=== PATIENT | female | born 1990 | race Caucasian/White ===

== ENCOUNTER 2019-12-10 20:05 | Emergency (ER) | payer SELFPAY ==
[2019-12-10] MEDS ORDERED: PROMETHAZINE HCL 25 MG TABLET PO ONE ×2 (21:10→23:59)
--- NOTE | 2019-12-10 21:11 | ER Document Report ---
ED Medical Screen (RME) - General Chief Complaint: Abdominal Pain Stated Complaint: ABDOMINAL PAIN Time Seen by Provider: 12/10/19 21:08 Information source: Patient Notes: Patient presents complaining of her right lower side abdominal tenderness that started 3:00 this morning. Patient reports nausea but denies any vomiting or diarrhea. Patient denies any fever or urinary symptoms. Patient is currently 7 weeks G1, P0. Patient denies any vaginal bleeding or discharge. I have greeted and performed a rapid initial assessment of this patient. A comprehensive ED assessment and evaluation of the patient, analysis of test results and completion of the medical decision making process will be conducted by additional ED providers. - Related Data Allergies/Adverse Reactions: sulfamethoxazole [From Bactrim] Allergy (Verified 12/10/19 21:07) trimethoprim [From Bactrim] Allergy (Verified 12/10/19 21:07) Physical Exam - Vital signs Vitals: Temp Pulse Resp BP Pulse Ox 98.0 F 89 17 128/83 H 100 12/10/19 20:15 12/10/19 20:15 12/10/19 20:15 12/10/19 20:15 12/10/19 20:15 - Abdominal Tenderness: Tender - Right lower quadrant Course - Vital Signs Vital signs: Temp Pulse Resp BP Pulse Ox 98.0 F 89 17 128/83 H 100 12/10/19 20:15 12/10/19 20:15 12/10/19 20:15 12/10/19 20:15 12/10/19 20:15
[2019-12-10 22:00] LABS: ABSOLUTE BASOPHILS # (AUTO) 0.1 10^3/uL (0.0-0.2); ABSOLUTE EOSINOPHILS # (AUTO) 0.1 10^3/uL (0.0-0.6); ABSOLUTE LYMPHOCYTES (AUTO) 2.9 10^3/uL (0.5-4.7); ABSOLUTE MONOCYTES (AUTO) 1.2 10^3/uL (0.1-1.4); ABSOLUTE NEUT (AUTO) 9.7 10^3/uL (1.7-8.2); BASOPHILS % (AUTO) 0.6 % (0-2); HEMATOCRIT 39.3 % (36.0-47.0); HEMOGLOBIN 13.9 g/dL (12.0-15.5); LYMPHOCYTES % (AUTO) 20.8 % (13-45); MEAN CORPUSCULAR HGB CONC 35.2 g/dL (32.0-36.0); MEAN CORPUSCULAR VOLUME 85 fl (80-97); MONOCYTES % (AUTO) 8.4 % (3-13); PLATELET COUNT 316 10^3/uL (150-450); RED BLOOD COUNT 4.61 10^6/uL (3.72-5.28); SEGMENTED NEUTROPHILS % (AUTO) 69.2 % (42-78); TOTAL CELLS COUNTED % (AUTO) 100 %
[2019-12-10 22:15] LABS: APPEARANCE,URINE SLIGHTLY-CLOUDY; BILIRUBIN,URINE NEGATIVE (NEGATIVE); COLOR,URINE YELLOW; GLUCOSE, URINE NEGATIVE (NEGATIVE); KETONES,URINE NEGATIVE (NEGATIVE); LEUKOCYTE ESTERASE,URINE MODERATE (NEGATIVE); NITRITE,URINE NEGATIVE (NEGATIVE); PROTEIN,URINE NEGATIVE (NEGATIVE); URINE SPECIFIC GRAVITY 1.023; UROBILINOGEN,URINE NEGATIVE mg/dL (<2.0)
[2019-12-10 22:20] LABS: ANION GAP 12 (5-19); BLOOD UREA NITROGEN 11 mg/dL (7-20); CALCIUM 9.4 mg/dL (8.4-10.2); CARBON DIOXIDE 23 mmol/L (22-30); CHLORIDE 101 mmol/L (98-107); GLUCOSE 97 mg/dL (75-110); POTASSIUM 3.8 mmol/L (3.6-5.0)
[2019-12-10 23:34] LABS: CHLAM PCR NOT DETECTED (NOT DETECT)
--- NOTE | 2019-12-11 00:34 | RADIOLOGY REPORT (SQ) ---
EXAM DESCRIPTION: US TRANSVAGINAL COMPLETED DATE/TME: 12/10/2019 21:10 CLINICAL HISTORY: 29 years, Female, RLQ pain COMPARISON: None. TECHNIQUE: Emergent first trimester ultrasound LIMITATIONS: None. FINDINGS: The uterus measures 10.0 x 5.1 x 6.1 cm. There is an intrauterine gestational sac with yolk sac and pole. Heart tones were obtained at 120 bpm. There is a 1.9 x 1.7 cm hypoechoic area near the gestational sac which could reflect small subchorionic hemorrhage. Ultrasound age 6 weeks 5 days. Nabothian cysts are present in the cervix. The right ovary measures 3.3 x 2.8 x 3.1 cm, the left 3.7 x 2.3 x 2.1 cm. Arterial and venous flow to each ovary. There is no free fluid. There is a 2.4 x 2.2 x 2.5 cm echogenic lesion of the right ovary which likely reflecting dermoid cyst. This is isoechoic to adjacent fat. This could be further assessed on a nonemergent basis.. IMPRESSION: Single, live intrauterine gestation. Probable small subchorionic hemorrhage. Ultrasound age is 6 weeks 5 days. Echogenic mass of the right adnexa/right ovary likely reflecting dermoid cyst. Recommend follow-up as per below. Recommendations for f/u of ovarian complex cysts (1): Endometrioma: <= 7 cm: US f/u 6-12 wks. If not surgically resected, US f/u annually. >7 cm: Consider MR w/IVC or surgical evaluation. If not surgically resected, US f/u annually. Dermoid: <= 5 cm: MR w/IV contrast. If not surgically resected, US f/u annually. >5 cm: Surgical evaluation. If not surgically resected, MR w/IVC; then US f/u annually Indeterminate cyst - multiple thin <=3 mm septations: Any size in any age: Consider surgical evaluation. Indeterminate cyst - non-hyperechoic nodule w/o blood flow: Any size in any age: Consider MR w/IVC or surgical evaluation. Indeterminate cyst - other, not classic for but suggestive of hemorrhagic cyst, endometrioma or dermoid: Pre-menopause: <= 7 cm: US f/u 6-12 weeks. If unchanged, continue f/u with US or consider MR w/IVC. If these do not confirm endometrioma or dermoid, consider surgical evaluation. >7 cm: Consider MR w/IVC or surgical evaluation. Post-menopause (>=1 year from last menstrual period): Any size: Consider surgical evaluation. Cyst worrisome for malignancy (thick, irregular >=3 mm septations or nodule with blood flow): Any size in any age: Consider surgical evaluation. (1) Recommendations based upon the 2010 SRU Consensus Conference Statement on the Management of Asymptomatic Ovarian and Other Adnexal Cysts Imaged at US: Radiology. 2009;256(3):943-54 copyright 2011 [employer]- All Rights Reserved
--- NOTE | 2019-12-11 02:57 | PDOC CONSULTATION ---
Consultation Consult Date: 12/11/19 Provider Consulted: ALEX CHINCHILLA Consult reason:: Abdominal pains History of Present Illness Patient complains of: Abdominal pains History of Present Illness: LISE AWAD is a 29 year old female who woke up at 3AM yesterday with right lower quadrant pains. She came to the ED and ultrasound of the pelvis was done and noted to have uterine of about 7 weeks. She has dermoid cyst on the right side 2 x 2 x 2cm. She denies any fever chills nausea vomiting diarrhea nor constipation. She feels her pains are improving but more noticeable when she moves from side to side while in bed. In the past couple of days she feels that she is not able to completely empty her urinary bladder. Her urinalysis showed moderate leukocyte esterase but other parameters are normal for UTI. Social History Smoking Status: Never Smoker Family History Parental Family History Reviewed: Yes Children Family History Reviewed: No Sibling(s) Family History Reviewed.: No Medication/Allergy Allergies/Adverse Reactions: sulfamethoxazole [From Bactrim] Allergy (Verified 12/10/19 21:07) trimethoprim [From Bactrim] Allergy (Verified 12/10/19 21:07) Review of Systems Constitutional: PRESENT: as per HPI Gastrointestinal: PRESENT: as per HPI Physical Exam Vital Signs: Temp Pulse Resp BP Pulse Ox 98.3 F 66 16 109/67 98 12/11/19 00:25 12/11/19 00:25 12/11/19 00:25 12/11/19 00:25 12/11/19 00:25 Intake & Output 12/09/19 12/10/19 12/11/19 06:59 06:59 06:59 Weight 79.2 kg General appearance: PRESENT: mild distress - Not asking for pain medication Head exam: PRESENT: atraumatic Eye exam: PRESENT: conjunctiva pink Mouth exam: PRESENT: moist Neck exam: PRESENT: full ROM Respiratory exam: PRESENT: clear to auscultation mala Cardiovascular exam: PRESENT: RRR Pulses: PRESENT: normal radial pulses GI/Abdominal exam: PRESENT: soft, tenderness - Mild tenderness on the right lower quadrant and suprapubic areas Rectal exam: PRESENT: deferred Neurological exam: PRESENT: alert, oriented to person, oriented to place, oriented to time, oriented to situation Results Laboratory Results: 12/10/19 21:41 12/10/19 21:41 12/10/19 12/10/19 12/10/19 21:41 21:41 21:41 WBC 14.0 H RBC 4.61 Hgb 13.9 Hct 39.3 MCV 85 MCH 30.0 MCHC 35.2 RDW 13.0 Plt Count 316 Seg Neutrophils % 69.2 Sodium 136.0 L Potassium 3.8 Chloride 101 Carbon Dioxide 23 Anion Gap 12 BUN 11 Creatinine 0.59 Est GFR ( Amer) > 60 Glucose 97 Calcium 9.4 Urine Color YELLOW Urine Appearance SLIGHTLY-CLOUDY Urine pH 6.0 Ur Specific Lyman 1.023 Urine Protein NEGATIVE Urine Glucose (UA) NEGATIVE Urine Ketones NEGATIVE Urine Blood NEGATIVE Urine Nitrite NEGATIVE Ur Leukocyte Esterase MODERATE H Urine WBC (Auto) 6 Urine RBC (Auto) 6 Impressions: Obstetrics Ultrasound 12/10/19 21:10 IMPRESSION: Single, live intrauterine gestation. Probable small subchorionic hemorrhage. Ultrasound age is 6 weeks 5 days. Echogenic mass of the right adnexa/right ovary likely reflecting dermoid cyst. Recommend follow-up as per below. Recommendations for f/u of ovarian complex cysts (1): Endometrioma: <= 7 cm: US f/u 6-12 wks. If not surgically resected, US f/u annually. >7 cm: Consider MR w/IVC or surgical evaluation. If not surgically resected, US f/u annually. Dermoid: <= 5 cm: MR w/IV contrast. If not surgically resected, US f/u annually. >5 cm: Surgical evaluation. If not surgically resected, MR w/IVC; then US f/u annually Indeterminate cyst - multiple thin <=3 mm septations: Any size in any age: Consider surgical evaluation. Indeterminate cyst - non-hyperechoic nodule w/o blood flow: Any size in any age: Consider MR w/IVC or surgical evaluation. Indeterminate cyst - other, not classic for but suggestive of hemorrhagic cyst, endometrioma or dermoid: Pre-menopause: <= 7 cm: US f/u 6-12 weeks. If unchanged, continue f/u with US or consider MR w/IVC. If these do not confirm endometrioma or dermoid, consider surgical evaluation. >7 cm: Consider MR w/IVC or surgical evaluation. Post-menopause (>=1 year from last menstrual period): Any size: Consider surgical evaluation. Cyst worrisome for malignancy (thick, irregular >=3 mm septations or nodule with blood flow): Any size in any age: Consider surgical evaluation. (1) Recommendations based upon the 2010 SRU Consensus Conference Statement on the Management of Asymptomatic Ovarian and Other Adnexal Cysts Imaged at US: Radiology. 2009;256(3):776-29 copyright 2011 [employer]- All Rights Reserved Assessment & Plan - Diagnosis (1) Abdominal gas pain Is this a current diagnosis for this admission?: Yes - Time Time Spent: 30 to 50 Minutes - Plan Summary Plan Summary: 29-year-old female 7weeks with almost 24 hours of right lower quadrant pains. Pains actually are getting better. Her white count slightly elevated. Ultrasound showed single uterine about 7weeks with heart tones. Small dermoid on the right lower quadrant area. Urinalysis showed mild leukocyte esterase but no other finding will be more suspicious for UTI though patient claims that the past couple of days she would not empty her bladder completely. Physical exam showed just mild tenderness in the right lower quadrant and suprapubic areas. Impression is unlikely that she has acute appendicitis. Recommendation: I had a long talk with the patient and her and given them the option of being admitted and getting an MRI later in the morning or going home and just be placed on clear liquids and if her pains worsen or develops fever or vomiting for her to come back right away to ED. It is almost 24 hours now since she has the pains and her pains actually are getting better so I do not think she has acute appendicitis. The patient and her decided to go home and and if the pains worsen or develops fever or chills nausea or vomiting then for her to come back to the emergency room for reevaluation. 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
--- NOTE | 2019-12-11 03:40 | ER Document Report ---
ED General - General Chief Complaint: Abdominal Pain Stated Complaint: ABDOMINAL PAIN Time Seen by Provider: 12/10/19 21:08 Notes: 29-year-old female presents the emergency department complaining of right lower quadrant pain that onset around 3 AM yesterday morning. States it is intermittent and sharp and stabbing, worsens with movement and rolling from side to side. She states that the pain worsens when she tries to urinate or have a bowel movement with that pressure but that she does not actually have any dysuria or frequency. Patient is a G1, P0, 7 weeks . Denies any vaginal bleeding or vaginal discharge. Has not seen anybody yet for this . TRAVEL OUTSIDE OF THE [place] IN LAST 30 DAYS: No - Related Data Allergies/Adverse Reactions: sulfamethoxazole [From Bactrim] Allergy (Verified 12/10/19 21:07) trimethoprim [From Bactrim] Allergy (Verified 12/10/19 21:07) Past Medical History - General Information source: Patient - Social History Smoking Status: Never Smoker Frequency of alcohol use: None Drug Abuse: None Family History: Reviewed & Not Pertinent Patient has suicidal ideation: No Patient has homicidal ideation: No Review of Systems - Review of Systems Constitutional: No symptoms reported Gastrointestinal: See HPI Genitourinary: See HPI Female Genitourinary: See HPI -: Yes All other systems reviewed and negative Physical Exam - Vital signs Vitals: Temp Pulse Resp BP Pulse Ox 98.0 F 89 17 128/83 H 100 12/10/19 20:15 12/10/19 20:15 12/10/19 20:15 12/10/19 20:15 12/10/19 20:15 Interpretation: Normal - Notes Notes: GENERAL: Alert, interacts well. No acute distress. HEAD: Normocephalic, atraumatic EYES: Pupils equal, round and reactive to light, extraocular movements intact. ENT: Oral mucosa moist, tongue midline. NECK: Full range of motion, supple, trachea midline. LUNGS: Clear to auscultation bilaterally, no wheezes, rales or rhonchi, no respiratory distress. HEART: Regular rate and rhythm, no murmurs, gallops, rubs. ABDOMEN: Soft, right lower and right mid abdominal tenderness to palpation, no guarding, no rigidity, no rebounding, nondistended, bowel sounds present in all 4 quadrants. PELVIC: Right adnexal tenderness to palpation, negative chandelier sign, no cervical tenderness to palpation, no cervical discharge. EXTREMITIES: Moves all 4 extremities spontaneously, no edema, radial and dorsalis pedis pulses 2/4 bilaterally. No cyanosis. NEUROLOGICAL: Alert and oriented x3, normal speech. PSYCH: Normal mood, normal affect. SKIN: Warm, Dry, normal turgor, no rashes or lesions noted. Course - Re-evaluation Re-evalutation: 12/11/19 03:42 CBC shows leukocytosis, BMP grossly unremarkable, quantitative hCG is 43,576, urinalysis I suspect is contaminated as the leukocyte esterase is moderate but there are 12 squamous epithelial cells. This was sent for culture. I will lean towards treating this because she does complain of pain when bearing down to urinate, it will be treated with Macrobid so as to not cloud the picture. Gonorrhea and Chlamydia are negative. Ultrasound shows single intrauterine of 6 weeks 5 days gestation with a heart rate of 120 bpm. There is a dermoid cyst. I did discuss the case with Dr. Zunilda Oglesby who is the [facility] on-call, she states that a dermoid cyst should not cause pain and should not cause a leukocytosis. Agrees with plan to consult with surgery, agrees that MRI would be the better study for looking for appendicitis in somebody at this stage of . Also discussed the case with Dr. Rehman, still examined the patient, feels that at this time the patient is not concerning for appendicitis, gave the patient the option to stay and be observed and have an MRI in the morning or to go home and watch for the next 24 hours to see if her pain worsens or improves. Patient chooses to be discharged home. I will treat possible urinary tract infection versus dirty urine that was contaminated with Macrobid so as to not possibly partially treat appendicitis. Patient will be discharged home and return for worsening pain or any new or concerning symptoms. - Vital Signs Vital signs: Temp Pulse Resp BP Pulse Ox 98.3 F 66 16 109/67 98 12/11/19 00:25 12/11/19 00:25 12/11/19 00:25 12/11/19 00:25 12/11/19 00:25 - Laboratory Result Diagrams: 12/10/19 21:41 12/10/19 21:41 Laboratory results interpreted by me: 12/10/19 12/10/19 12/10/19 21:41 21:41 21:41 WBC 14.0 H Absolute Neuts (auto) 9.7 H Sodium 136.0 L Beta HCG, Quant 41463.00 H Ur Leukocyte Esterase MODERATE H Discharge - Discharge Clinical Impression: RLQ abdominal pain, First trimester , Dermoid cyst of right ovary Condition: Stable Disposition: HOME, SELF-CARE Additional Instructions: Today we are not exactly sure what is causing your pain. It is possible that it is appendicitis, it is also possible that this is coming from a very mild urinary tract infection. If your pain worsens, if you develop a fever or if you develop any new or concerning symptoms I want you to return to the emergency department immediately. We will consider doing an MRI at that point to look for appendicitis. This is safe in . I am also treating you with Macrobid. This is an antibiotic that will only treat urinary tract infections and will not treat appendicitis. If your symptoms improve with the Macrobid that means this is unlikely to be appendicitis. For the dermoid cyst you will need to follow-up with [facility] as an outpatient. This is something that they can discuss with you while treating your . Prescriptions: Nitrofurantoin/Nitrofuran Mac [Macrobid 100 mg Capsule] 1 tab PO BID #10 capsule Referrals: ZUNILDA OGLESBY MD [ACTIVE STAFF] - Follow up in 3-5 days
[2019-12-11 04:11] VITALS: BP 104/62
== END 2019-12-11 04:15 | disposition home or self-care (01) ==
LOC: ER 20:05
DX: O26.891 Other specified pregnancy related conditions, first trimester (principal); R10.31 Right lower quadrant pain; O99.89 Other specified diseases and conditions complicating pregnancy, childbirth and the puerperium; D27.0 Benign neoplasm of right ovary; O99.111 Other diseases of the blood and blood-forming organs and certain disorders involving the immune mechanism complicating pregnancy, first trimester; D72.829 Elevated white blood cell count, unspecified; Z3A.01 Less than 8 weeks gestation of pregnancy; Z88.1 Allergy status to other antibiotic agents
CPT/HCPCS: 36415; 76817; 80048; 81001; 84702; 85025; 87086; 87491; 87591; 99284

== ENCOUNTER 2020-07-18 21:07 | Inpatient (IN) | payer OTHER ==
[~2020-07-18 21:07] MED LIST: ZOLPIDEM TARTRATE 5 MG TABLET PO ONE
[2020-07-18] MEDS ORDERED: RINGERS SOLUTION,LACTATED 1,000 ML IV ONE (21:16)
[2020-07-18] MEDS ORDERED: DINOPROSTONE 10 MG VAGINAL INSERT.SR PV PRN (21:17)
[2020-07-18 21:53] LABS: HEMATOCRIT 39.1 % (36.0-47.0); HEMOGLOBIN 13.3 g/dL (12.0-15.5); MEAN CORPUSCULAR HGB CONC 33.9 g/dL (32.0-36.0); MEAN CORPUSCULAR VOLUME 91 fl (80-97); PLATELET COUNT 255 10^3/uL (150-450); RED BLOOD COUNT 4.28 10^6/uL (3.72-5.28); WHITE BLOOD COUNT 11.5 10^3/uL (4.0-10.5)
[2020-07-18 21:54] LABS: APPEARANCE,URINE CLEAR; BILIRUBIN,URINE NEGATIVE (NEGATIVE); COLOR,URINE STRAW; GLUCOSE, URINE NEGATIVE (NEGATIVE); KETONES,URINE NEGATIVE (NEGATIVE); LEUKOCYTE ESTERASE,URINE NEGATIVE (NEGATIVE); NITRITE,URINE NEGATIVE (NEGATIVE); PROTEIN,URINE NEGATIVE (NEGATIVE); URINE SPECIFIC GRAVITY 1.003; UROBILINOGEN,URINE NEGATIVE mg/dL (<2.0)
[2020-07-18 22:08] LABS: ABSOLUTE LYMPHOCYTES# (MANUAL) 3.2 10^3/uL (0.5-4.7); ABSOLUTE MONOCYTES # (MANUAL) 0.9 10^3/uL (0.1-1.4); BASOPHILS % (MANUAL) 0 % (0-2); EOSINOPHILS % (MANUAL) 1 % (0-6); LYMPHOCYTES % (MANUAL) 28 % (13-45); MONOCYTES % (MANUAL) 8 % (3-13); SEGMENTED NEUTROPHILS % (MAN) 63 % (42-78); TOTAL CELLS COUNTED 100
[2020-07-18 22:09] LABS: ANISOCYTOSIS SLIGHT
[2020-07-18 22:10] LABS: PLATELET COMMENT ADEQUATE
[2020-07-18 22:11] LABS: URINE AMPHETAMINES SCREEN NEGATIVE; URINE BARBITURATES SCREEN NEGATIVE; URINE BENZODIAZEPINES SCREEN NEGATIVE; URINE COCAINE SCREEN NEGATIVE; URINE MARIJUANA (THC) SCREEN NEGATIVE; URINE METHADONE SCREEN NEGATIVE; URINE PHENCYCLIDINE SCREEN NEGATIVE
[2020-07-18] MEDS: RINGERS SOLUTION,LACTATED 1,000 ML IV PRN (22:30)
[2020-07-18] MEDS ORDERED: OXYTOCIN 10 UNIT/ML VIAL ONE (22:51)
[2020-07-18] MEDS ORDERED: MISOPROSTOL 0.2 MG TABLET ONE (22:51)
[2020-07-18] MEDS ORDERED: OXYTOCIN/0.9 % SODIUM CHLORIDE 30 UNIT/500 ML RTUINJ ONE (22:52)
[2020-07-18] MEDS ORDERED: LIDOCAINE 1% INJ-PF (10 MG/ML) 30 ML SDV ONE (22:52)
[2020-07-18] MEDS ORDERED: DINOPROSTONE 10 MG VAGINAL INSERT.SR ONE (22:52)
[2020-07-18] MEDS ORDERED: ACETAMINOPHEN 325 MG TABLET PO ONE (23:08)
--- NOTE | 2020-07-18 23:08 | Admission Physical ---
Datetime Report Generated by CPN: 07/18/2020 23:08 CURRENT ADMISSION Chief Complaint: Other Indication for Induction: Gestational HTN; Eclampsia-Mild Admit Impression : Term, Intrauterine Admit Plan: Admit to Unit; Initiate Labor Protocol ALLERGIES Medication Allergies: Yes Medication Allergies: sulfamethoxazole (07/17/2020); trimethoprim (07/17/2020) Latex: No Latex Allergies OBSTETRICAL HISTORY EDC: 07/30/2020 00:00 : 1 Para: 0 Term: 0 : 0 SAB: 0 IAB: 0 Ectopic: 0 Livin Cesareans: 0 VBACs: 0 Multiple Births: 0 PIH: Yes Current Procedures: Ultrasound Obstetrical History Comments: G1- Current pre-eclampsia PHYSICAL EXAM General: Normal HEENT: Normal Neurologic: Normal Thyroid: Normal Heart: Normal Lungs: Normal Breast: Deferred Back: Normal Abdomen: Normal Genitourinary Exam: Normal Extremities: Normal DTRs: Normal Pelvic Type: Adequate FETUS A EGA: 38.2 INFORMED CONSENT Signature: with User ID: [email or web address]
[2020-07-18] MEDS ORDERED: ACETAMINOPHEN 325 MG TABLET ONE (23:09)
[2020-07-19] MEDS ORDERED: ZOLPIDEM TARTRATE 5 MG TABLET ONE (00:15)
[2020-07-19] MEDS: RINGERS SOLUTION,LACTATED 1,000 ML IV PRN (10:33)
[2020-07-19] MEDS ORDERED: NALBUPHINE HCL INJ 10 MG/1 ML AMPULE ONE ×2 (14:21→20:35)
[2020-07-19] MEDS ORDERED: PROMETHAZINE HCL INJ 25 MG/1 ML VIAL ONE ×2 (14:21→20:35)
[2020-07-19] MEDS ORDERED: PROMETHAZINE HCL INJ 25 MG/1 ML VIAL IV ONE ×2 (14:35→20:30)
[2020-07-19] MEDS ORDERED: NALBUPHINE HCL INJ 10 MG/1 ML AMPULE IV ONE (14:35)
--- NOTE | 2020-07-19 14:36 | L&D Progress Notes ---
PROGRESS NOTES Datetime Report Generated by CPN: 07/19/2020 14:35 PROGRESS NOTE Impression Other: IOL for pre-e stable Procedures: Sterile Vag Exam Plan: Continue Present Management; Induction Informed Consent Obtained: Vaginal Delivery; Induction of Labor Vital Signs : Reviewed; Within Normal Limits Comment: S: pt comfortable after cervidil removal, agreeable to cook's cath, no concerns at this time O: VSS, cervix and contractions as stated, cat I tracing A: IUP @ 38w3d- IOL for pre-e stable with cervical change after cervidil Cook's catheter inserted without difficulty-pt tolerated well P: continue IOL with low dose pit and cooks catheter at this time, epidural prn VAGINAL EXAM Contractions: irregular LAST VAGINAL EXAM-NURSING Nursing Exam Dilitation: 1.0 Nursing Exam Effacement: 50 Nursing Exam Station: -2 Nursing Exam Contractions: irregular MEMBRANES Membranes: Intact FETUS A Monitoring: External US FHR Category: Category I SIGNATURE SIGNATURE: [id number] Assignment: Shaquille aBi MD Signature: with User ID: [email or web address] : with User ID: [email or web address]
--- NOTE | 2020-07-19 16:55 | L&D Progress Notes ---
PROGRESS NOTES Datetime Report Generated by CPN: 07/19/2020 16:55 PROGRESS NOTE Impression Other: IUP @ 24t2q-INn stable Procedures: Sterile Vag Exam Plan: Continue Present Management; Induction Informed Consent Obtained: Vaginal Delivery; Induction of Labor Vital Signs : Within Normal Limits Comment: S: comfortable, took good nap after IV pain medication, no concerns at this time O: VSS ( 1 severe range, laying on bp cuff, repeat mild range), cervix as stated-cook's remains in place, pit @9mu/min, Cat I tracing A: IUP @ 38w3d IOL for [id number] P: continue present management, epidural prn VAGINAL EXAM Contractions: 4 LAST VAGINAL EXAM-NURSING Nursing Exam Dilitation: 3.0 Nursing Exam Effacement: 50 Nursing Exam Station: -2 Nursing Exam Contractions: irregular MEMBRANES Membranes: Intact FETUS A Monitoring: External US FHR Category: Category I SIGNATURE SIGNATURE: [id number] Assignment: Shaquille Bai MD Signature: with User ID: [email or web address] : with User ID: [email or web address]
[2020-07-19] MEDS ORDERED: NALBUPHINE HCL INJ 10 MG/1 ML AMPULE INJ ONE (20:30)
[2020-07-19] MEDS ORDERED: EPHEDRINE SULFATE INJ 50 MG/1 ML AMPULE ONE (23:36)
[2020-07-19] MEDS ORDERED: FENTANYL/BUPIVACAINE/NS/PF 300 MCG/150 ML RTUINJ EPI ONE (23:37)
[2020-07-19] MEDS ORDERED: ROPIVACAINE HCL 0.2% INJ/PF (2 MG/ML) 20 ML SDV ONE (23:37)
[2020-07-20] MEDS ORDERED: ACETAMINOPHEN 325 MG TABLET ONE ×2 (07:39→18:37)
[2020-07-20] MEDS ORDERED: ACETAMINOPHEN 325 MG TABLET PO ONE (08:30)
[2020-07-20] MEDS ORDERED: OXYTOCIN/0.9 % SODIUM CHLORIDE 30 UNIT/500 ML RTUINJ ONE (09:52)
[2020-07-20] MEDS: OXYTOCIN/0.9 % SODIUM CHLORIDE 30 UNIT/500 ML RTUINJ IV PRN (10:00)
[2020-07-20] MEDS ORDERED: FENTANYL/BUPIVACAINE/NS/PF 300 MCG/150 ML RTUINJ EPI ONE (14:03)
[2020-07-20] MEDS ORDERED: AMPICILLIN SOD/SULBACTAM 3 GM VIAL ONE (18:44)
[2020-07-20] MEDS ORDERED: BUPIVACAINE HCL 0.25 % INJ/PF (2.5 MG/1 ML) 30 ML VIAL ONE (21:06)
[2020-07-20] MEDS ORDERED: ROPIVACAINE HCL 0.2% INJ/PF (2 MG/ML) 20 ML SDV ONE ×2 (21:07→23:05)
[2020-07-21] MEDS ORDERED: ACETAMINOPHEN 325 MG TABLET ONE ×2 (00:35→12:16)
[2020-07-21] MEDS ORDERED: AMPICILLIN SOD/SULBACTAM 3 GM VIAL ONE ×2 (00:35→06:55)
[2020-07-21] MEDS ORDERED: AMPICILLIN SOD/SULBACTAM 3 GM VIAL IV SCH ×2 (01:00→12:00)
[2020-07-21] MEDS ORDERED: ACETAMINOPHEN 325 MG TABLET PO ONE ×2 (01:00→12:13)
[2020-07-21] MEDS ORDERED: FENTANYL/BUPIVACAINE/NS/PF 300 MCG/150 ML RTUINJ EPI ONE (03:33)
[2020-07-21] MEDS ORDERED: CITRIC ACID/SODIUM CITRATE ORAL SOLN 15 ML UDCUP ONE (05:59)
[2020-07-21] MEDS ORDERED: CEFAZOLIN 2 GM/D5W RTU 2 GM/50 ML RTUPB IV ONE (05:59)
[2020-07-21] MEDS ORDERED: OXYTOCIN/0.9 % SODIUM CHLORIDE 30 UNIT/500 ML RTUINJ ONE ×2 (07:14→14:14)
[2020-07-21] MEDS: OXYTOCIN/0.9 % SODIUM CHLORIDE 30 UNIT/500 ML RTUINJ IV PRN (07:39)
[2020-07-21] MEDS ORDERED: BUPIVACAINE HCL 0.25 % INJ/PF (2.5 MG/1 ML) 30 ML VIAL ONE (08:33)
--- NOTE | 2020-07-21 08:50 | L&D Progress Notes ---
PROGRESS NOTES Datetime Report Generated by CPN: 07/21/2020 08:49 PROGRESS NOTE Impression Other: IUP @ 19w3i-MNa stable Procedures: Sterile Vag Exam Plan: Continue Present Management; Induction Informed Consent Obtained: Vaginal Delivery; Induction of Labor Vital Signs : Within Normal Limits Comment: VS stable, Cat 1 strip, tired, ready to be delivered, VE by RN, will move patient in different positions and recheck, Dr. Boswell on unit and discussed POC, will monitor closely, C/S if no progress or descent this AM VAGINAL EXAM Contractions: 4 LAST VAGINAL EXAM-NURSING Nursing Exam Dilitation: 9.0 Nursing Exam Effacement: 90 Nursing Exam Station: -1 Nursing Exam Contractions: unable to determine pattern at this time d/t maternal position. MEMBRANES Membranes: Intact FETUS A Monitoring: External US FHR Category: Category I SIGNATURE SIGNATURE: [id number] Assignment: Zunilda Boswell MD Signature: with User ID: [email or web address] : with User ID: [email or web address]
[2020-07-21] MEDS ORDERED: NORMAL SALINE 250 ML IV PRN ×2 (10:03)
[2020-07-21 11:05] LABS: FIBRINOGEN 582 mg/dL (209-497); INTERNATIONAL RATION (INR) 1.07; PARTIAL THROMBOPLASTIN TIME 30.8 SEC (23.5-35.8); PROTHROMBIN TIME 14.1 SEC (11.4-15.4)
[2020-07-21 11:06] LABS: HEMATOCRIT 35.7 % (36.0-47.0); HEMOGLOBIN 12.2 g/dL (12.0-15.5); MEAN CORPUSCULAR HGB CONC 34.3 g/dL (32.0-36.0); MEAN CORPUSCULAR VOLUME 90 fl (80-97); PLATELET COUNT 213 10^3/uL (150-450); RED BLOOD COUNT 3.96 10^6/uL (3.72-5.28); RED CELL DISTRIBUTION WIDTH 14.1 % (11.5-14.0)
[2020-07-21 11:11] LABS: ALBUMIN 2.5 g/dL (3.5-5.0); ALKALINE PHOSPHATASE 143 U/L (38-126); ANION GAP 8 (5-19); ASPARTATE AMINO TRANSFERASE 30 U/L (14-36); BILIRUBIN,DIRECT 0.1 mg/dL (0.0-0.4); BILIRUBIN,TOTAL 1.7 mg/dL (0.2-1.3); BLOOD UREA NITROGEN 10 mg/dL (7-20); CALCIUM 7.6 mg/dL (8.4-10.2); CARBON DIOXIDE 17 mmol/L (22-30); CHLORIDE 106 mmol/L (98-107); GLUCOSE 100 mg/dL (75-110); POTASSIUM 3.6 mmol/L (3.6-5.0)
[2020-07-21] MEDS ORDERED: FENTANYL CITRATE INJ/PF 100 MCG/2 ML AMPUL IV ONE (11:24)
[2020-07-21] MEDS ORDERED: FENTANYL CITRATE INJ/PF 100 MCG/2 ML AMPUL ONE ×2 (11:25→14:14)
[2020-07-21 11:33] LABS: ABSOLUTE MONOCYTES # (MANUAL) 1.2 10^3/uL (0.1-1.4); ANISOCYTOSIS SLIGHT; BAND NEUTROPHILS % (MANUAL) 3 % (3-5); BASOPHILS % (MANUAL) 0 % (0-2); EOSINOPHILS % (MANUAL) 0 % (0-6); LYMPHOCYTES % (MANUAL) 4 % (13-45); MONOCYTES % (MANUAL) 5 % (3-13); OVALOCYTES SLIGHT; PLATELET COMMENT ADEQUATE; SEGMENTED NEUTROPHILS % (MAN) 88 % (42-78); TEAR DROP CELLS SLIGHT; TOTAL CELLS COUNTED 100; TOXIC GRANULATION SLIGHT; TOXIC VACUOLATION PRESENT
[2020-07-21 11:42] LABS: WHITE BLOOD COUNT 24.7 10^3/uL (4.0-10.5)
[2020-07-21] MEDS: AMPICILLIN SODIUM/SULBACTAM NA 3 GM in NORMAL SALINE 100 ML IV SCH ×2 (13:14→19:09)
--- NOTE | 2020-07-21 13:46 | L&D Progress Notes ---
PROGRESS NOTES Datetime Report Generated by CPN: 07/21/2020 13:46 PROGRESS NOTE Impression Other: IUP @ 53t8u-TOf stable Procedures: Sterile Vag Exam Plan: Continue Present Management; Induction Informed Consent Obtained: Vaginal Delivery; Induction of Labor Vital Signs : Within Normal Limits Comment: Dr. Boswell in to check patient, VE 8-9, no cervical change and cervix could not be reduced, POC discussed with pt and and C/S called, Cat 1 strip, Pitocin D/C, vs stable VAGINAL EXAM Contractions: 4 LAST VAGINAL EXAM-NURSING Nursing Exam Dilitation: 9.0 Nursing Exam Effacement: 90 Nursing Exam Station: 1 Nursing Exam Contractions: unable to determine pattern at this time d/t maternal position. MEMBRANES Membranes: Intact FETUS A Monitoring: External US FHR Category: Category I SIGNATURE SIGNATURE: [id number] Assignment: Zunilda Boswell MD Signature: with User ID: [email or web address] : with User ID: [email or web address]
[2020-07-21] MEDS ORDERED: HYDROMORPHONE HCL INJ/PF 2 MG/ML AMPULE IV PRN (13:54)
[2020-07-21] MEDS ORDERED: MEASLES,MUMPS&RUBELLA VACC/PF 0.5 ML VIAL SUBCUT PRN (13:54)
[2020-07-21] MEDS ORDERED: OXYCODONE-ACETAMINOPHEN 5-325 MG TABLET PO PRN (13:54)
[2020-07-21] MEDS ORDERED: OXYTOCIN/0.9 % SODIUM CHLORIDE 30 UNIT/500 ML RTUINJ IV PRN (13:54)
[2020-07-21] MEDS ORDERED: RINGERS SOLUTION,LACTATED 1,000 ML IV PRN (13:54)
[2020-07-21] MEDS ORDERED: PROMETHAZINE HCL INJ 25 MG/1 ML VIAL IV PRN (13:54)
[2020-07-21] MEDS ORDERED: ACETAMINOPHEN 325 MG TABLET PO PRN (13:54)
[2020-07-21] MEDS ORDERED: ACETAMINOPHEN 1,000 MG/100 ML RTUPB IV PRN (13:54)
[2020-07-21] MEDS ORDERED: DIPH/PERTUSS(ACELL)/TETANUS VAC/PF 0.5 ML SYR (>=10YO) IM PRN (13:54)
--- NOTE | 2020-07-21 14:00 | Operative Report ---
Operative Report DATE OF SURGERY: 07/21/20 PREOPERATIVE DIAGNOSIS: Arrest of Dilation, Chorioamnionitis, PreE, 38+5ega, Fa iled IOL POSTOPERATIVE DIAGNOSIS: KING - delivered, macrosomia OPERATION: Primary section SURGEON: KAT OGLESBY ANESTHESIA: Epidural TISSUE REMOVED OR ALTERED: placenta and cord sent to pathology COMPLICATIONS: none ESTIMATED BLOOD LOSS: 600ml QUANTITATIVE BLOOD LOSS: 905 INTRAOPERATIVE FINDINGS: normal bilateral tubes/ovaries, normal uterus, VMI delivered at 1452, apgars 8/9, weight 9#6oz. cytotec 1000mg given [place] for mild uterine atony. PROCEDURE: Anesthesia provider: [Katie Spivey CRNA, Dr. Berry] Urine output: [150ml] IV fluids: [600ml] Indications: [30yo at 38+5ega presented on 07/18 for IOL with cervidil for PreE by 24 hr UTP of greater than 300mg. On 07/19 she progressed with pitocin and cooks catheter. She SROM at 1906 on 07/19 and already had epidural in place. On 07/20 she reportedly continued to progress and reached 7cm last evening. Upon my arrival this am she was reported to be 9cm but having irregular contraction pattern. She was additionally given IVF and additional IV line and D5 since she had not eaten since 07/19. Pitocin increased to 30milliunits with more regular contraction pattern. Now cervix is still only 9cm despite 4hrs of contractions. Per last US on 07/03 bay was 7# with projected weight at this time based on US of 8-9 pounds. Reassuring monitoring throughout this morning. Reviewed with patient arrest of dilation and reviewed and regarding risks of bleeding and infection with known chorioamnionitis and prolonged Rupture of membranes and prolonged labor and induction. The risks, benefits, alternatives were reviewed and she desires to proceed with planned procedure. Will continue unasyn postoperatively.] Procedure: The patient was taken to the operating room where spinal anesthesia was obtained and found to be adequate. She was then prepped and draped in the normal sterile fashion and placed in the dorsal supine position with a leftward tilt. A Pfannenstiel skin incision was then made and carried through to the underlying layers of the fascia with the scalpel. The fascia was incised in the midline and the incision extended laterally with the Ruby scissors. The superior aspect of the fascial incision was then grasped with Gerardo clamps elevated and the underlying rectus muscles dissected off [bluntly]. Attention was then turned to the inferior aspect of the fascial incision which in a similar fashion was grasped, tented up with Gerardo clamps, and the rectus muscles dissected off [bluntly]. The rectus muscles were then in the midline and the peritoneum at the amount identified and entered [bluntly]. The peritoneal incision was then extended superiorly and inferiorly with good visualization of the bladder. The bladder blade was inserted and the vesicouterine peritoneum identified grasped with Lebanese pickups and entered sharply with the Metzenbaum scissors. This incision was then extended laterally with the Metzenbaum scissors and a bladder flap created digitally. The bladder blade was then reinserted and the lower uterine segment incised in a transverse fashion with the scalpel. The uterine incision was then extended bluntly. The bladder blade was removed and the infant's head was delivered from cephalic presentation atraumatically. The nose and mouth were suctioned and the cord doubly clamped and cut. And the infant was handed off to waiting pediatricians. The placenta was then delivered spontaneously and the uterus exteriorized and cleared of all clots and debris. The uterine incision was then repaired with 1- 0 Vicryl in a running locked fashion. A second layer of the same suture was used to obtain hemostasis via imbrication of the initial layer. The bladder flap was then repaired with 3-0 chromic in a running fashion. The uterus was returned to the patient's abdomen and Interceed was placed overlying the uterine incision to prevent adhesions. The gutters were cleared of all clots and debri s. All operative sites were noted to be hemostatic. The fascia was reapproximated with 0 Vicryl in a running fashion from each lateral edge to the midline. The skin was closed with 3-0 Monocryl in a running subcuticular fashion with overlying Exofin for additional dressing as well as wound closure. The patient tolerated the procedure well. Sponge lap needle and instrument counts are correct times 2. 2 g of Ancef were given prior to skin incision. The patient was taken to the recovery area awake and in stable condition.
[2020-07-21] MEDS ORDERED: LOPERAMIDE HCL 2 MG CAPSULE ONE (14:05)
[2020-07-21] MEDS ORDERED: OXYTOCIN 10 UNIT/ML VIAL ONE ×2 (14:05→14:14)
[2020-07-21] MEDS ORDERED: CARBOPROST TROMETHAMINE INJ 250 MCG/1 ML AMPULE ONE (14:05)
[2020-07-21] MEDS ORDERED: PHENYLEPHRINE HCL INJ/PF 10 MG/1 ML SDV ONE (14:14)
[2020-07-21] MEDS ORDERED: ONDANSETRON HCL INJ/PF 4 MG/2 ML SDV ONE (14:14)
[2020-07-21] MEDS ORDERED: ACETAMINOPHEN 1,000 MG/100 ML RTUPB IV ONE (14:14)
[2020-07-21] MEDS ORDERED: KETOROLAC TROMETHAMINE INJ/PF 30 MG/1 ML SDV ONE (14:14)
--- NOTE | 2020-07-21 16:00 | Warning Signs in Babies ---
VOD Warning Signs Datetime Report Generated by [facility]: 07/21/2020 16:00 VOD#608 -Warning Signs in Babies: Needs to be viewed. (07/21/2020 15:38:Shalonda Solorzano RN)
[2020-07-21] MEDS ORDERED: DIPHENHYDRAMINE HCL 50 MG/ML VIAL ONE (16:03)
--- NOTE | 2020-07-21 16:35 | Delivery Summary ---
Del Sum A-C Datetime Report Generated by CPN: 07/21/2020 16:34 DELIVERY PERSONNEL DELIVERY PERSONNEL: [id number] Delivery Doctor:: Zunilda Boswell MD ELECTRICAL EXPERIMENTAL MECHANIC:: Katie Spivey CRNA Exercise Manager:: Shalonda Solorzano RN Neonatal Nurse Practitioner:: ROBERT Arzate Nursery Nurse:: Elizabeth Wisdom RN Pressed Or Blown Glass Worker/ICU SPECIALIST: Marizol Maya Pressed Or Blown Glass Worker/ICU SPECIALIST: Reymundo Garcia, CONICAL MIXER MATERNAL INFORMATION Delivery Anesthesia: Epidural; Spinal Medications After Delivery: Pitocin Bolus-Please Comment; Pitocin 30 Units in 500ml NS/D5W Delivery QBL: 905 Maternal Complications: Chorioamnionitis LABOR SUMMARY EDC: 07/30/2020 00:00 No. Babies in Womb: 1 Attempted: No Labor Anesthesia: Epidural LABOR INFORMATION Reason for Induction: Pre-Eclampsia Onset of Labor: 07/19/2020 19:06 Cervical Ripening Agents: Cervidil Oxytocin: Induction Group B Beta Strep: Negative Antibiotics # of Doses: 4 Antibiotics Time of Last Dose: 07/21/2020 13:15 Name of Antibiotic Given: Unasyn Steroids Given: None Reason Steroids Not Administered: Not Applicable MEMBRANES Membranes Rupture Method: Spontaneous Rupture of Membranes: 07/19/2020 19:06 Length of Rupture (hr): 43.77 Amniotic Fluid Color: Clear Amniotic Fluid Amount: Small Amniotic Fluid Odor: Foul STAGES OF LABOR Stage 3 hr: 0 Stage 3 min: 1 Total Time in Labor hr: 43 Total Time in Labor min: 47 VAGINAL DELIVERY Episiotomy: None Laceration #1: None Laceration Extension #1: N/A Laceration Repair: Not Applicable Sponge Count Correct: N/A Sharps Count Correct: N/A CSECTION DELIVERY Primary Indication: Secondary Arrest of Dilatation CSection Urgency: Non-Scheduled CSection Incidence: Primary CSection Incision: Lower Uterine Transverse BABY A INFORMATION Infant Delivery Date/Time: 07/21/2020 14:52 Method of Delivery: Nurse Controlled Delivery: No Born in Route : No : N/A Forceps: N/A Vacuum Extraction: N/A Shoulder Dystocia : No PRESENTATION/POSITION BABY A Presentation: Cephalic Cephalic Presentation: Vertex Breech Presentation: N/A PLACENTA INFORMATION BABY A Placenta Delivery Time : 07/21/2020 14:53 Placenta Method of Delivery: Manual Removal Placenta Status: Delivered SCORES BABY A Heart Rate 1 min: >100 bpm Resp Effort 1 min: Good Cry Reflex Irritability 1 min: Cough or Sneeze or Pulls Away Muscle Tone 1 min: Active Motion Color 1 min: Blue/Pale Resuscitation Effort 1 min: Tactile Stimulation SCORE 1 MIN: 8 Heart Rate 5 min: >100 bpm Resp Effort 5 min: Good Cry Reflex Irritability 5 min: Cough or Sneeze or Pulls Away Muscle Tone 5 min: Active Motion Color 5 min: Body [place], Extremities Blue SCORE 5 MIN: 9 INFORMATION BABY A Gestational Age at Delivery: 38.5 Gestational Status: Early Term- 37- 38.6 Weeks Infant Outcome : Liveborn Condition : Stable Sex: Male IDENTIFICATION BABY A Verification Date/Time: 07/21/2020 14:55 ID Band Number: [id number] Mother's Name Verified: Yes Infant RN Verifying : Sandra Solorzano, RN/ Hawa Wisdom, ROGERS WEIGHT/LENGTH BABY A Infant Birthweight (gm): 4285 Infant Weight (lb): 9 Infant Weight (oz): 7 Infant Length (in): 20.75 Length (cm): 52.71 CORD INFORMATION BABY A No. Cord Vessels: 3 Nuchal Cord : Around Neck x1, Loose Cord Blood Taken: Yes-For Eval (Mom's Blood Type - or O+) Suction: Mouth; Nose ASSESSMENT BABY A Complications: None Physical Findings at Delivery: Within Normal Limits; Caput Succedaneum; Molding of the Head Respirations: Appears Normal Lean Manufacturing Leader/ALS Called : No Infant Care By: Elizabeth JulibostonROGERS Transferred To: Nursery BABY B INFORMATION : N/A
--- NOTE | 2020-07-21 16:35 | Birth Certificate Data ---
Cert Data Datetime Report Generated by CPN: 07/21/2020 16:34 CERTIFICATE DATA 47a. Care: Yes (07/17/2020 08:42:LINO Fajardo) 47b. Date of First Visit: 02/21/2020 00:00 (07/17/2020 08:42:Shalonda Solorzano RN) 47c. Date of Last Visit: 07/17/2020 00:00 (07/17/2020 08:42:Shalonda Solorzano RN) 47d. Number of Visits: 9 (07/17/2020 08:42:Shalonda Solorzano RN) 48a. Number of Prev Live Births: 0 (07/17/2020 08:42:Shalonda Solorzano RN) 48b. Now Livin (07/17/2020 08:42:Isatu Cordero RN) 48c. Live Births Now : 0 (07/17/2020 08:42:QS system process) 48e. Losses: 0 (07/17/2020 08:42:Shalonda Solorzano RN) RISK FACTORS IN THIS 49a. Diabetes: No (07/17/2020 08:42:Marizol Diaz RN) 49b. Hypertension: Yes (07/17/2020 08:42:Marizol Diaz RN) Type of Hypertension: Gestational (PIH, Pre-eclampsia) (07/17/2020 08:42:Marizol Diaz RN) 49c. Previous Births: 0 (07/17/2020 08:42:Isatu Cordero RN) 49d. Stillborns: No (07/17/2020 08:42:Marizol Diaz RN) 49d. IUGR: No (07/17/2020 08:42:Marizol Diaz RN) 49e. Infertility Treatment: No (07/17/2020 08:42:Marizol Diaz RN) 49f. Previous Cesareans: 0 (07/17/2020 08:42:LINO Fajardo) Mother's Height 50b. Height Inches: 63 (07/19/2020 13:24:QS system process) Mother's Weight 51a. Pre- Weight (lbs): 170 (07/17/2020 08:42:Shalonda Solorzano RN) 51b. Weight at Delivery (lbs): 200 (07/19/2020 13:24:QS system process) Infections Present/Treated 53a. Gonorrhea: No (07/17/2020 08:42:Marizol Diaz RN) Results this Hospital Visit : Negative (07/17/2020 08:42:Isatu Cordero RN) 53b. Syphilis: No (07/17/2020 08:42:Marizol Diaz RN) Results this Hospital Visit: NONREACTIVE (07/18/2020 21:30:QS system process) 53c. Chlamydia: No (07/17/2020 08:42:Marizol Diaz RN) Results this Hospital Visit: Negative (07/17/2020 08:42:Isatu Cordero RN) 53d. Hepatitis B: No (07/17/2020 08:42:Marizol Diaz RN) Results this Hospital Visit: Negative (07/17/2020 08:42:Isatu Cordero RN) 53h. Mother Tested for HBsAG: Yes (07/17/2020 08:42:Sejal Retana RN) 53i. Date Tested: 02/21/2020 00:00 (07/17/2020 08:42:Shalonda Solorzano RN) 53j. Test Result: Negative (07/17/2020 08:42:Isatu Cordero RN) Obstetric Procedures 54a, b, c. Obstetric Procedures: Ultrasound (07/17/2020 08:42:Shalonda Solorzano RN) Cigarette Smoking 55a. 3 Months Before Preg - Ci (07/17/2020 08:42:Sejal Retana RN) 55a. Packs: 0 (07/17/2020 08:42:Sejal Retana RN) 55b. 1st Trimester of Preg- Ci (07/17/2020 08:42:Sejal Retana RN) 55b. Packs: 0 (07/17/2020 08:42:Sejal Retana RN) 55c. 2nd Trimester of Preg- Ci (07/17/2020 08:42:Sejal Retana RN) 55c. Packs: 0 (07/17/2020 08:42:Sejal Retana RN) 55d. 3rd Trimester of Preg- Ci (07/17/2020 08:42:Sejal Retana RN) 55d. Packs: 0 (07/17/2020 08:42:Sejal Retana RN) Onset of Labor 56a. PROM >12 Hrs: 43.77 (07/17/2020 08:42:QS system process) 56b. Precipitous Labor <3 Hrs: 43 (07/17/2020 08:42:QS system process) 56c. Prolonged Labor > 20 Hrs: 43 (07/17/2020 08:42:QS system process) 57a. Induction of Labor: Induction (07/17/2020 08:42:Shalonda Solorzano RN) 57a. Induction of Labor: Cervidil (07/18/2020 23:00:Marizol Diaz RN) 57c. Non-Vertex Presentation A: Vertex (07/17/2020 08:42:Shalonda Solorzano RN) 57d. Steroids - Lung Mat: None (07/17/2020 08:42:Shalonda Solorzano RN) 57d. Steroids - Lung Mat: Not Applicable (07/17/2020 08:42:Shalonda Solorzano RN) 57e. Antibiotics During Labor: 07/21/2020 13:15 (07/17/2020 08:42:Shalonda Solorzano RN) 57f. Mat Chorio or Temp >100.4: 100.8 (07/17/2020 08:42:Shalonda Solorzano RN) 57g. Moderate/Heavy Meconium: Clear (07/19/2020 19:06:Halle Lobato RN) 57h. Intolerance of Labor: Secondary Arrest of Dilatation (07/17/2020 08:42:Shalonda Solorzano RN) 57i. Epidural/Spinal Anesthesia: Epidural (07/17/2020 08:42:Shalonda Solorzano RN) Method of Delivery 58a. Forceps - Unsuccessful A: N/A (07/17/2020 08:42:Elizabeth Wisdom RN) 58b. Vacuum - Unsuccessful A: N/A (07/17/2020 08:42:Elizabeth Wisdom RN) 58c. Presentation at 58c. Presentation at - A : Vertex (07/17/2020 08:42:Shalonda Solorzano RN) 58c. Presentation at - A : N/A (07/17/2020 08:42:Shalonda Solorzano RN) 58c. Presentation at - A : Cephalic (07/20/2020 20:48:Yuliana Medel RN) Final Route and Method of Del 58d. Baby A Route/Delivery: (07/17/2020 08:42:Elizabeth Wisdom RN) 58e. Trial of Labor Attempted: No (07/17/2020 08:42:Shalonda Solorzano RN) 58e. Trial of Labor Attempted A: N/A (07/17/2020 08:42:Shalonda Solorzano RN) 58e. Trial of Labor Attempted B: N/A (07/17/2020 08:42:Shalonda Solorzano RN) Maternal Morbidity 59b. 3rd or 4th Degree Lacs: None (07/17/2020 08:42:Shalonda Solorzano RN) Birthweight Baby A: 4285 (07/17/2020 08:42:Elizabeth Wisdom RN) 60a. Pounds : 9 (07/17/2020 08:42:QS system process) 60b. Ounces: 7 (07/17/2020 08:42:QS system process) 61. GA at Delivery Baby A: 38.5 (07/17/2020 08:42:Elizabeth Wisdom RN) : Early Term- 37- 38.6 Weeks (07/17/2020 08:42:QS system process) 62a. 5 Minute Baby A: 9 (07/17/2020 08:42:QS system process)
[2020-07-21] MEDS: DOCUSATE SODIUM 100 MG CAPSULE PO SCH (18:52)
[2020-07-21] MEDS: RINGERS SOLUTION,LACTATED 1,000 ML IV PRN (19:09)
[2020-07-21] MEDS: OXYCODONE-ACETAMINOPHEN 5-325 MG TABLET PO PRN (19:10)
[2020-07-21] MEDS ORDERED: KETOROLAC TROMETHAMINE INJ/PF 30 MG/1 ML SDV IV ONE (22:30)
[2020-07-22] MEDS: AMPICILLIN SODIUM/SULBACTAM NA 3 GM in NORMAL SALINE 100 ML IV SCH ×4 (01:03→18:51)
[2020-07-22] MEDS: OXYCODONE-ACETAMINOPHEN 5-325 MG TABLET PO PRN ×3 (04:21→17:33)
[2020-07-22] MEDS ORDERED: KETOROLAC TROMETHAMINE INJ/PF 30 MG/1 ML SDV IV SCH (06:00)
[2020-07-22 07:37] LABS: HEMATOCRIT 33.3 % (36.0-47.0); HEMOGLOBIN 11.5 g/dL (12.0-15.5); MEAN CORPUSCULAR HEMOGLOBIN 31.3 pg (27.0-33.4); MEAN CORPUSCULAR HGB CONC 34.4 g/dL (32.0-36.0); MEAN CORPUSCULAR VOLUME 91 fl (80-97); PLATELET COUNT 240 10^3/uL (150-450); RED BLOOD COUNT 3.66 10^6/uL (3.72-5.28); RED CELL DISTRIBUTION WIDTH 14.3 % (11.5-14.0); WHITE BLOOD COUNT 15.3 10^3/uL (4.0-10.5)
--- NOTE | 2020-07-22 09:31 | PDOC PROGRESS REPORT ---
Subjective-OB Progress Note for:: 07/22/20 Subjective: Feeling alot better today, having some gas pains when eating, pain under control, breast feeding, Physical Exam (OB) Vital Signs: Temp Pulse Resp BP Pulse Ox 98.2 F 74 17 124/84 98 07/22/20 07:27 07/22/20 07:27 07/22/20 07:27 07/22/20 07:27 07/22/20 07:27 Intake & Output 07/21/20 07/22/20 07/23/20 06:59 06:59 06:59 Intake Total 400 Output Total 950 Balance -550 - PIH/Pre-Eclampsia Clonus: Negative Headache: Absent Epigastric Pain: No Visual Changes: No - Dressing Removed: No Incision: Well Approximated Closure Type: Surgical Glue - Maternal Morbidity 59. Maternal Morbidity (serious complications experinced by the mother associated with labor and delivery: None of the above - Lochia Lochia Amount: Scant < 10 ml Lochia Color: Rubra/Red - Abdomen Description: Soft Hernia Present: No Fundal Description: Firm, Midline Fundal Height: u/u - u/2 Objective-Diagnostic Laboratory: 07/22/20 07:25 07/21/20 10:37 07/18/20 07/21/20 07/21/20 21:30 10:37 10:37 WBC 24.7 H D RBC 3.96 Hgb 12.2 Hct 35.7 L MCV 90 MCH 31.0 MCHC 34.3 RDW 14.1 H Plt Count 213 Seg Neutrophils % Not Reportable Sodium 131.0 L Potassium 3.6 Chloride 106 Carbon Dioxide 17 L Anion Gap 8 BUN 10 Creatinine 1.34 H Est GFR ( Amer) 57 L Glucose 100 Uric Acid 7.0 H Calcium 7.6 L Total Bilirubin 1.7 H AST 30 Alkaline Phosphatase 143 H Total Protein 5.0 L Albumin 2.5 L Blood Type O POSITIVE Antibody Screen NEGATIVE 07/21/20 07/22/20 10:37 07:25 WBC 15.3 H RBC 3.66 L Hgb 11.5 L Hct 33.3 L MCV 91 MCH 31.3 MCHC 34.4 RDW 14.3 H Plt Count 240 Seg Neutrophils % Sodium Potassium Chloride Carbon Dioxide Anion Gap BUN Creatinine Est GFR ( Amer) Glucose Uric Acid Calcium Total Bilirubin AST Alkaline Phosphatase Total Protein Albumin Blood Type O POSITIVE Antibody Screen NEGATIVE Assessment and Plan(PN) - Assessment and Plan (1) S/P primary low transverse Is this a current diagnosis for this admission?: Yes (2) Chorioamnionitis, delivered, current hospitalization Is this a current diagnosis for this admission?: Yes (3) Arrest of dilation, delivered, current hospitalization Is this a current diagnosis for this admission?: Yes (4) Pre-eclampsia Qualifiers: Trimester: third trimester Is this a current diagnosis for this admission?: Yes - Time Spent with Patient Time with patient: Less than 15 minutes Medications reviewed and adjusted accordingly: Yes - Disposition Anticipated Discharge Disposition: Home, Self Care Anticipated Discharge Timeframe: within 48 hours
[2020-07-22] MEDS: SIMETHICONE 80 MG TAB.CHEW PO PRN ×3 (09:34→20:50)
[2020-07-22] MEDS: DOCUSATE SODIUM 100 MG CAPSULE PO SCH ×2 (09:34→17:38)
[2020-07-22] MEDS: PRENATAL VITAMIN W DHA CAPSULE PO SCH (09:35)
[2020-07-22] MEDS ORDERED: KETOROLAC TROMETHAMINE INJ/PF 30 MG/1 ML SDV IV ONE (11:56)
[2020-07-22] MEDS ORDERED: IBUPROFEN 800 MG TABLET PO SCH (12:00)
[2020-07-22] MEDS ORDERED: IBUPROFEN 800 MG TABLET PO ONE (19:00)
[2020-07-22] MEDS ORDERED: FUROSEMIDE 20 MG TABLET PO ONE (20:45)
[2020-07-22] MEDS: IBUPROFEN 800 MG TABLET PO SCH (23:17)
[2020-07-23] MEDS: OXYCODONE-ACETAMINOPHEN 5-325 MG TABLET PO PRN ×2 (03:08→09:19)
[2020-07-23] MEDS: IBUPROFEN 800 MG TABLET PO SCH ×2 (05:43→11:33)
[2020-07-23] MEDS ORDERED: FUROSEMIDE 20 MG TABLET PO ONE (08:00)
[2020-07-23] MEDS: SIMETHICONE 80 MG TAB.CHEW PO PRN (08:12)
[2020-07-23 08:50] VITALS: BP 129/77
[2020-07-23] MEDS: PRENATAL VITAMIN W DHA CAPSULE PO SCH (09:19)
[2020-07-23] MEDS: DOCUSATE SODIUM 100 MG CAPSULE PO SCH (09:19)
--- NOTE | 2020-07-23 09:26 | PDOC PROGRESS REPORT ---
Subjective-OB Progress Note for:: 07/23/20 Subjective: Doing better today, gas pains improving, ready to go home, lasix helping with edema, voiding alot, pain under control Physical Exam (OB) Vital Signs: Temp Pulse Resp BP Pulse Ox 97.7 F 98 18 129/77 H 99 07/23/20 08:13 07/23/20 08:13 07/23/20 08:13 07/23/20 08:13 07/23/20 08:13 Intake & Output 07/22/20 07/23/20 07/24/20 06:59 06:59 06:59 Intake Total 400 1240 400 Output Total 950 2950 600 Balance -550 -1710 -200 - PIH/Pre-Eclampsia DTR's: 2 + Clonus: Negative Headache: Absent Epigastric Pain: No Visual Changes: No - Dressing Removed: Yes Incision: Open, Well Approximated Closure Type: Surgical Glue - Maternal Morbidity 59. Maternal Morbidity (serious complications experinced by the mother associated with labor and delivery: None of the above - Lochia Lochia Amount: Scant < 10 ml Lochia Color: Rubra/Red - Abdomen Description: Soft Hernia Present: No Fundal Description: Firm, Midline Fundal Height: u/u - u/2 Objective-Diagnostic Laboratory: 07/22/20 07:25 07/21/20 10:37 Assessment and Plan(PN) - Assessment and Plan (1) S/P primary low transverse Is this a current diagnosis for this admission?: Yes (2) Chorioamnionitis, delivered, current hospitalization Is this a current diagnosis for this admission?: Yes (3) Arrest of dilation, delivered, current hospitalization Is this a current diagnosis for this admission?: Yes (4) Pre-eclampsia Qualifiers: Trimester: third trimester Is this a current diagnosis for this admission?: Yes (5) Moderate pre-eclampsia Qualifiers: Trimester: third trimester Qualified Code(s): O14.03 - Mild to moderate pre-eclampsia, third trimester Is this a current diagnosis for this admission?: Yes - Time Spent with Patient Time with patient: Less than 15 minutes Medications reviewed and adjusted accordingly: Yes - Disposition Anticipated Discharge Disposition: Home, Self Care Anticipated Discharge Timeframe: within 24 hours - home today
--- NOTE | 2020-07-23 09:35 | PDOC DISCHARGE SUMMARY ---
Impression - Admit/DC Date/PCP Admission Date/Primary Care Provider: 07/18/20 21:07 Discharge Date: 07/23/20 - Discharge Diagnosis (1) S/P primary low transverse Is this a current diagnosis for this admission?: Yes (2) Chorioamnionitis, delivered, current hospitalization Is this a current diagnosis for this admission?: Yes (3) Arrest of dilation, delivered, current hospitalization Is this a current diagnosis for this admission?: Yes (4) Pre-eclampsia Is this a current diagnosis for this admission?: Yes (5) Moderate pre-eclampsia Is this a current diagnosis for this admission?: Yes - Additional Information Resuscitation Status: Full Code Discharge Diet: As Tolerated, Regular Discharge Activity: Activity As Tolerated, No Driving, Pelvic Rest, No tub bath Referrals: CHIQUIS EMANUEL MD [ACTIVE STAFF] - (RTC 1 week) Prescriptions: Oxycodone HCl/Acetaminophen [Percocet 5-325 mg Tablet] 1 tab PO Q4HP PRN #20 tablet PRN Reason: Ibuprofen [Motrin 800 mg Tablet] 800 mg PO Q6 #30 tablet Home Medications: Pnv No.95/Ferrous Fum/Folic AC [ Caplet] 1 tab PO DAILY 07/17/20 Ibuprofen [Motrin 800 mg Tablet] 800 mg PO Q6 #30 tablet 07/23/20 Oxycodone HCl/Acetaminophen [Percocet 5-325 mg Tablet] 1 tab PO Q4HP PRN #20 tablet 07/23/20 HPI Gestational Age: 38.5 Reason(s) for Admission: Induction of Labor, Ceasarean Section-Primary Admission Note: Pre-E Procedures: NST, Ultrasound Intrapartum Procedure(s): : Low Cervical, Transverse Intrapartum Procedure Note: Macrosomia, chorio Hospital Course Hospital Course: normal postop 59. Maternal Morbidity (serious complications experinced by the mother assoc iated with labor and delivery: None of the above Results Laboratory Results: WBC 15.3 10^3/uL (4.0-10.5) H 07/22/20 07:25 RBC 3.66 10^6/uL (3.72-5.28) L 07/22/20 07:25 Hgb 11.5 g/dL (12.0-15.5) L 07/22/20 07:25 Hct 33.3 % (36.0-47.0) L 07/22/20 07:25 MCV 91 fl (80-97) 07/22/20 07:25 MCH 31.3 pg (27.0-33.4) 07/22/20 07:25 MCHC 34.4 g/dL (32.0-36.0) 07/22/20 07:25 RDW 14.3 % (11.5-14.0) H 07/22/20 07:25 Plt Count 240 10^3/uL (150-450) 07/22/20 07:25 Lymph % (Auto) Not Reportable 07/21/20 10:37 [place]anner % (Auto) Not Reportable 07/21/20 10:37 Eos % (Auto) Not Reportable 07/21/20 10:37 Baso % (Auto) Not Reportable 07/21/20 10:37 Absolute Neuts (auto) Not Reportable 07/21/20 10:37 Absolute Lymphs (auto) Not Reportable 07/21/20 10:37 Absolute Monos (auto) Not Reportable 07/21/20 10:37 Absolute Eos (auto) Not Reportable 07/21/20 10:37 Absolute Basos (auto) Not Reportable 07/21/20 10:37 Total Counted 100 07/21/20 10:37 Seg Neutrophils % Not Reportable 07/21/20 10:37 Seg Neuts % (Manual) 88 % (42-78) H 07/21/20 10:37 Band Neutrophils % 3 % (3-5) 07/21/20 10:37 Lymphocytes % (Manual) 4 % (13-45) L 07/21/20 10:37 Monocytes % (Manual) 5 % (3-13) 07/21/20 10:37 Eosinophils % (Manual) 0 % (0-6) 07/21/20 10:37 Basophils % (Manual) 0 % (0-2) 07/21/20 10:37 Abs Neuts (Manual) 22.5 10^3/uL (1.7-8.2) H 07/21/20 10:37 Abs Lymphs (Manual) 1.0 10^3/uL (0.5-4.7) 07/21/20 10:37 Abs Monocytes (Manual) 1.2 10^3/uL (0.1-1.4) 07/21/20 10:37 Absolute Eos (Manual) 0.0 10^3/uL (0.0-0.6) 07/21/20 10:37 Abs Basophils (Manual) 0.0 10^3/uL (0.0-0.2) 07/21/20 10:37 Toxic Granulation SLIGHT 07/21/20 10:37 Toxic Vacuolation PRESENT 07/21/20 10:37 Platelet Comment ADEQUATE 07/21/20 10:37 Anisocytosis SLIGHT 07/21/20 10:37 Tear Drop Cells SLIGHT 07/21/20 10:37 Ovalocytes SLIGHT 07/21/20 10:37 PT 14.1 SEC (11.4-15.4) 07/21/20 10:37 INR 1.07 07/21/20 10:37 APTT 30.8 SEC (23.5-35.8) 07/21/20 10:37 Fibrinogen 582 mg/dL (209-497) H 07/21/20 10:37 Sodium 131.0 mmol/L (137-145) L 07/21/20 10:37 Potassium 3.6 mmol/L (3.6-5.0) 07/21/20 10:37 Chloride 106 mmol/L (98-107) 07/21/20 10:37 Carbon Dioxide 17 mmol/L (22-30) L 07/21/20 10:37 Anion Gap 8 (5-19) 07/21/20 10:37 BUN 10 mg/dL (7-20) 07/21/20 10:37 Creatinine 1.34 mg/dL (0.52-1.25) H 07/21/20 10:37 Est GFR ( Amer) 57 (>60) L 07/21/20 10:37 Est GFR (MDRD) Non-Af 47 (>60) L 07/21/20 10:37 Glucose 100 mg/dL (75-110) 07/21/20 10:37 Uric Acid 7.0 mg/dL (2.5-6.2) H 07/21/20 10:37 Calcium 7.6 mg/dL (8.4-10.2) L 07/21/20 10:37 Total Bilirubin 1.7 mg/dL (0.2-1.3) H 07/21/20 10:37 Direct Bilirubin 0.1 mg/dL (0.0-0.4) 07/21/20 10:37 Neonat Total Bilirubin Not Reportable 07/21/20 10:37 Neonat Direct Bilirubin Not Reportable 07/21/20 10:37 Neonat Indirect Bili Not Reportable 07/21/20 10:37 AST 30 U/L (14-36) 07/21/20 10:37 ALT 12 U/L (<35) 07/21/20 10:37 Alkaline Phosphatase 143 U/L (38-126) H 07/21/20 10:37 Lactate Dehydrogenase 249 U/L (120-246) H 07/21/20 10:37 Total Protein 5.0 g/dL (6.3-8.2) L 07/21/20 10:37 Albumin 2.5 g/dL (3.5-5.0) L 07/21/20 10:37 Urine Color STRAW 07/18/20 21:14 Urine Appearance CLEAR 07/18/20 21:14 Urine pH 6.0 (5.0-9.0) 07/18/20 21:14 Ur Specific [place] 1.003 07/18/20 21:14 Urine Protein NEGATIVE mg/dL (NEGATIVE) 07/18/20 21:14 Urine Glucose (UA) NEGATIVE mg/dL (NEGATIVE) 07/18/20 21:14 Urine Ketones NEGATIVE mg/dL (NEGATIVE) 07/18/20 21:14 Urine Blood NEGATIVE (NEGATIVE) 07/18/20 21:14 Urine Nitrite NEGATIVE (NEGATIVE) 07/18/20 21:14 Urine Bilirubin NEGATIVE (NEGATIVE) 07/18/20 21:14 Urine Urobilinogen NEGATIVE mg/dL (<2.0) 07/18/20 21:14 Ur Leukocyte Esterase NEGATIVE (NEGATIVE) 07/18/20 21:14 Urine WBC (Auto) 0 /HPF 07/18/20 21:14 Urine RBC (Auto) 0 /HPF 07/18/20 21:14 Urine Bacteria (Auto) TRACE /HPF 07/18/20 21:14 Squamous Epi Cells Auto <1 /HPF 07/18/20 21:14 Urine Mucus (Auto) RARE /LPF 07/18/20 21:14 Urine Ascorbic Acid NEGATIVE (NEGATIVE) 07/18/20 21:14 Urine Opiates Screen NEGATIVE 07/18/20 21:14 Urine Methadone Screen NEGATIVE 07/18/20 21:14 Ur Barbiturates Screen NEGATIVE 07/18/20 21:14 Ur Phencyclidine Scrn NEGATIVE 07/18/20 21:14 Ur Amphetamines Screen NEGATIVE 07/18/20 21:14 U Benzodiazepines Scrn NEGATIVE 07/18/20 21:14 Urine Cocaine Screen NEGATIVE 07/18/20 21:14 U Marijuana (THC) Screen NEGATIVE 07/18/20 21:14 RPR NONREACTIVE (NONREACTIVE) 07/18/20 21:30 Blood Type O POSITIVE 07/21/20 10:37 Antibody Screen NEGATIVE 07/21/20 10:37 Crossmatch See Detail 07/21/20 10:37 Plan Health Concerns: pain control, edema Plan of Treatment: discharge home, increase water, avoid salty food, ambulate Goals: no complications Time Spent: Less than 30 Minutes
== END 2020-07-23 12:56 | disposition home or self-care (01) | DRG 786 ==
LOC: LR 21:07 → 2S 07-21 17:45
PROVIDERS: ADMIT Obstetrics & Gynecology Gynecology; ATTEND Obstetrics & Gynecology Gynecology
PROC: 3E033VJ Introduction of Other Hormone into Peripheral Vein, Percutaneous Approach (ICD-10-PCS; 2020-07-19)
PROC: 10D00Z1 Extraction of Products of Conception, Low, Open Approach (ICD-10-PCS; principal; 2020-07-21)
DX: O14.04 Mild to moderate pre-eclampsia, complicating childbirth (principal); O41.1230 Chorioamnionitis, third trimester, not applicable or unspecified; O62.0 Primary inadequate contractions; O61.0 Failed medical induction of labor; O36.63X0 Maternal care for excessive fetal growth, third trimester, not applicable or unspecified; O69.81X0 Labor and delivery complicated by cord around neck, without compression, not applicable or unspecified; Z11.59 Encounter for screening for other viral diseases; Z88.3 Allergy status to other anti-infective agents; Z3A.38 38 weeks gestation of pregnancy; Z37.0 Single live birth
CPT/HCPCS: 1967; 1968; 36415; 80053; 80307; 81001; 83615; 84550; 85025; 85027; 85384; 85610; 85730; 86592; 86850; 86900; 86901; 86920; 88307; 94760; 94799; 99140; C1758; J0131; J0295; J0690; J1170; J1200; J1885; J2300; J2370; J2405; J2550; J2590; J2795; J3010; J3490; J7050; J7120